=== PATIENT | female | born 1965 | race Asian ===

== ENCOUNTER 2025-06-14 13:07 | Outpatient (REF) | payer OTHER, SELFPAY ==
[2025-06-14 17:19] LABS: Hematocrit 49.0 % (37.0-47.0); Hemoglobin 15.6 g/dl (12.0-16.0); Mean Corpuscular HGB Conc 31.8 g/dl (31.0-35.0); Mean Corpuscular Hemoglobin 29.8 pg (27.0-33.0); Mean Corpuscular Volume 93.5 fL (80.0-98.0); NRBC Abs Auto 0.000 X10*3/uL (0.0-0.012); NRBC Pct Auto 0.0 /100WBC (0.0-0.2); Platelet Count 207 X10*3/uL (160-400); Red Blood Count 5.24 X10*6/uL (4.20-5.50); White Blood Count 8.3 X10*3/uL (4.8-10.8)
[2025-06-14 17:49] LABS: Microalbum/Creatinine Ratio Ur 13.9 ug/mg cr (<30)
[2025-06-14 17:59] LABS: Alanine Aminotransferase 58 U/L (0-31); Albumin Level 4.2 g/dL (3.5-5.0); Alkaline Phosphatase 101 U/L (39-117); Anion Gap 12 (12-20); Aspartate Amino Transferase 52 U/L (5-31); Blood Urea Nitrogen 11 mg/dL (9-16); Calcium 9.0 mg/dL (8.4-10.2); Carbon Dioxide 26 mmol/L (22-29); Chloride 108 mmol/L (96-108); Cholesterol 231 mg/dL (<200); Estimated Glomerular Filt Rate > 60; HDL Cholesterol 46 mg/dL (>40); Potassium 3.9 mmol/L (3.3-5.1); Sodium 142 mmol/L (135-145); Total Protein 7.2 g/dL (6.5-8.0); Triglycerides 110 mg/dL (<150)
[2025-06-14 18:22] LABS: Folate 3.6 ng/mL (> or = 4.0); Vitamin B12 835 pg/mL (200-900)
[2025-06-15 05:20] LABS: HBS Num1 0.30 mIU/mL (0-7.99); HBc Num1 13.27 S/CO (0.00-0.79); Hepatitis A Antibody IgM 0.34 Index (0-0.79); ~HepC Num1 0.17 S/CO (0.00-0.79); ~Hepatitis A Antibody IgM Nonreactive (Nonreactive); ~Hepatitis B Surface Antibody NONREACTIVE (Nonreactive); ~Hepatitis C Antibody Nonreactive (Nonreactive)
[2025-06-15 06:39] LABS: HBsAGNum2 Reactive; HBsAGNum3 Reactive
[2025-06-15 06:40] LABS: Hepatitis B Surface Antigen Retest CNFM (Negative)
[2025-06-15 06:52] LABS: HBc Num2 13.78 S/CO; HBc Num3 13.80 S/CO
[2025-06-17 02:42] LABS: Hepatitis B Core Antibody IgM NON-REACTIVE (NON-REACTIVE)
== END 2025-06-14 13:08 | disposition home or self-care (01) ==
LOC: HO.WFDLDS 13:07
PROVIDERS: PCP Nurse Practitioner Family; Visit Provider Nurse Practitioner Family
DX: Z00.00 Encounter for general adult medical examination without abnormal findings (principal); L85.3 Xerosis cutis; M79.672 Pain in left foot; M79.671 Pain in right foot; M65.332 Trigger finger, left middle finger; E66.9 Obesity, unspecified; R21 Rash and other nonspecific skin eruption; Z23 Encounter for immunization; Z78.0 Asymptomatic menopausal state; Z76.89 Persons encountering health services in other specified circumstances; Z13.820 Encounter for screening for osteoporosis; Z80.0 Family history of malignant neoplasm of digestive organs; Z68.30 Body mass index [BMI] 30.0-30.9, adult
CPT/HCPCS: 36415; 80053; 80061; 82043; 82306; 82570; 82607; 82746; 83036; 84443; 85027; 86704; 86705; 86706; 86709; 86803; 87340; 90471; 90472; 90656; 90715; 96127; 99202; 99386

== ENCOUNTER 2025-06-14 13:07 | Outpatient (AMB) | payer OTHER, SELFPAY ==
--- NOTE | 2025-06-14 13:10 | A.OFFPC_ITS ---
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 Intake Note: New patient visit [facility]ra [place]ta Roofer Helper Required: No Terra Cotta Roofer Helper Name: Terra Cotta Roofer Helper declined Accompanied by: Daughter Allergies No Known Allergies Allergy (Verified 06/14/25 13:11) Medication List - Last Reconciled 06/14/25 by HUNG Cruz-BC tacrolimus 0.03% 1 appl topical BID Tobacco use date assessed: 06/14/25 Dental Screening Dental Screen Date: 06/14/25 Did you have a dental visit in the last 12 months?: No Did you have a dental problem in the last 6 months where you did not have access to dental care?: No Was dental information given to patient?: Patient has dentist HPI HPI Comments History of Present Illness Details 60 y/o Panamanian speaking F with obesit y, Fhx liver ca (Mom) Surgery: none Fhx: Mom w/ liver cancer otherwise denies cancer or cardiac hx Social: moved from [place] to be closer to [facility] Health Maintenance: Colon cologaurd orderd today Mammo orderd today DEXA ordered today PAP will consider PULPER referral in future Tdap 06/14/25 Flu 06/14/25 Specialists: derm podiatry hand surgery History of Present Illness The patient is a 60 year old female presenting to [facility] care, for a CPE, and for evaluation of multiple musculoskeletal and dermatologic complaints. She has no known past medical or surgical history and denies any known drug allergies. She recently moved from [place] to [place]. No medical records available, here w/ dtr who helps w/ language barrier per her request. Xerosis of skin: - The patient reports dry skin on her le ft hand. - She has tried OTC creams from [facility] with out significant improvement. - She has not previously seen a dermatol ogist for this condition. Bilateral heel pain: - The patient complains of pain in both heels. - The pain is intermittent and has been present for about one week. - She has not tried any home treatments for the pain. Trigger finger, L middle: - The patient reports pain in one of her fingers which started a couple of months ago. - The pain is elicited upon touch, and s he has difficulty closing the finger. Past Medical History - Denies any past medical history. - Reports previously taking an unspecifi ed medicine for a neck issue. - Denies any known drug allergies. Past Surgical History - Denies any surgical history. Social History - The patient is retired. - She moved to [place] from [facility]. - Her [place] language is Panamanian. Health Maintenance - Laboratory studies for diabetes and ch olesterol screening will be ordered for the patient to complete today. - Influenza and Tdap vaccinations will b e administered during the visit. - The patient is agreeable to a home-bas ed test for colon cancer screening. Review of Systems - Constitutional: Denies fever, chills. - Integumentary: Reports dry skin on the left hand. - Musculoskeletal: Reports intermittent pain in both heels for one week and pain in a finger for a couple of months. History of a neck issue. - Allergic/Immunologic: Denies any medic ation allergies. Physical Exam General: Well developed, well nourished, in no acute distress. Appears stated age. Head: Normocephalic, atraumatic. Eyes: Pupils are equal, round and reactive to light and accommodation. Conjunctivae are clear. Scleras nonicteric bilat. Vision grossly normal. Ears: TMs clear AU, EACS WNL Nose: Patent, without discharge. Neck: No carotid bruit bilat. Supple, no adenopathy or thyromegaly. Breast: Edu on SBE Lungs: Clear to auscultation bilaterally. No rales, rhonchi or wheeze noted. Good air flow in all bear. Heart: Regular rate and rhythm. No murmurs, click, rubs or gallops are noted. Abdomen: Bowel sounds present in all quadrants. The abdomen is soft, nontender, with no masses or organomegaly noted. No hernias are noted. : Deferred. Reviewed recommendations for routine PULPER Pulses: Peripheral pulses are equal and palpable bilaterally. Trigger finger with LROM L middle, neurovasc intact ; pain over palp with heels bilat Extremities: No clubbing, cyanosis nor edema is noted. Pain noted in left heel and left hand, possibly trigger finger. Neurologic: Gait and station normal. Cranial Nerves 2-12 intact. Motor strength grossly symmetrical and intact. No sensory loss. Balance normal. Skin: No ulcers, or lesions noted elsewhere. Turgor is good. Skin color is good. Hair and nails are without abnormalities. Palmar surface L hand is a pink rash, skin is overall dry. Psych: Normal eye contact, affect and mood appropriate, and normal interactions. Patient is alert and appropriate to context. Results Pending Medical Decision Making The patient is a 60-year-old female presenting to [facility], for a CPE. She reports no significant past medical or surgical history. She has several chief complaints, including dry skin on the left hand, bilateral heel pain, and a trigger finger. The dry skin on her hand has not responded to [id number] creams. Given the lack of response, I will prescribe a topical cream and place a referral to Dermatology for further evaluation. The bilateral heel pain is consistent with plantar fasciitis, and a referral to a coding specialist is warranted. The finger complaint is clinically consistent with a trigger finger, which may require an injection; therefore, a referral to a hand specialist will be placed. As part of health maintenance for a new patient of her age, we will proceed with screening blood work for diabetes and cholesterol, which she can have done today. She is due for immunizations and will receive the influenza and Tdap vaccines today. We discussed cancer screenings, and the patient opted for a home-based test for colon cancer screening. Plan 1. Xerosis Of Skin - A prescription cream will be sent to [facility] pharmacy for the patient to try. - A referral will be placed for the [facility] to see a continuous pillowcase cutter. 2. Bilateral Heel Pain - A referral will be placed for the [facility] to be evaluated by a foot specialis t. 3. Trigger Finger - A referral will be placed for the [facility] to see a hand specialist, with the expectation that she may need an injection. Patient Instructions - A prescription for a cream has been se nt to your pharmacy, [facility] in [place]. Please use it as directed. - You will receive phone calls to [facility] appointments with a skin doctor, a foot doctor, and a hand doctor. Please make sure your phone number is up to date with the front office associate. - After the nurses give you two vaccinat ions (Flu and Tdap), please go to the lab here in the clinic to have your blood drawn. - Stop at the front office associate before you misty tuttle to get a summary of today's visit and to schedule your next appointment. Consent The patient provided verbal consent for screening blood work, including for diab etes and cholesterol. She also verbally consented to receive vaccinations during the visit. The patient was agreeable to referrals to dermatology, podiatry, and a hand specialist. Patient was informed and verbally consented to the use of an ambient scribe for clinic note documentation during this visit. An additional 30 minutes was spent addressing the problem(s) noted at todays visit. This includes time spent before the visit reviewing the chart, time spent during the visit, and time spent after the visit on documentation reviewing laboratory results, diagnostic imaging, medications, performing a medically necessary evaluation, counseling on diagnoses, care coordination, ordering appropriate tests, ordering appropriate medications, review of tests performed by other providers, reporting test results with the patient, communication with other healthcare providers. [facility] Surgical History (Updated 06/14/25 @ 13:24 by Mahsa Holley CMA) No pertinent past surgical history Social History (Updated 06/14/25 @ 13:24 by Mahsa Holley CMA) Housing: House Alcohol intake: never Patient Tobacco Use Status: Never used Tobacco e-Cigarette/Vaping Use: Never Used Second Hand Smoke Exposure: No Use of substances other than those prescribed or required for medical reasons: No service: No Current occupational status: retired Cognitive needs: No Hearing needs: No Vision needs: No Questionnaire PHQ-9 Over the last 2 weeks, how often have you been bothered by any of the following problems? 1. Little interest or pleasure in doing things: not at all 2. Feeling down, depressed, or hopeless: not at all 3. Trouble falling or staying asleep, or sleeping too much: not at all 4. Feeling tired or having little energy: not at all 5. Poor appetite or overeating: not at all 6. Feeling bad about yourself - or that you are a failure or have let yourself or your family down: not at all 7. Trouble concentrating on things, such as reading the newspaper or watching television: not at all 8. Moving or speaking so slowly that other people could have noticed. Or the opposite - being so fidgety or restless that you have been moving around a lot more than usual: not at all 9. Thoughts that you would be better off or of hurting yourself in some way: not at all Total score: 0 Depression Screening Interpretation: Negative Depression Screening Done: Yes 77381 - PHQ-9 Billing: Yes Source: Developed by Drs. Mir Liang, Carline Christopher, Kapil Haskins and colleagues, with an educational dion from [employer]. Thrive Questionnaire Date Thrive assessed: 06/14/25 I am a: Patient What is your living situation today?: I have a steady place to live Within the past 12 months, did the food you bought not last and you didn't have the money to get more?: Never true Within the past 12 months, did you worry whether your food would run out before you got money to buy more?: Never true Do you have trouble paying for medicines?: No Do you have trouble getting transportation to medical appointments?: No Do you have trouble paying your heating and electricity bill?: No Do you have trouble taking care of your child, family member or friend?: No Do you have trouble with day-to-day activities such as bathing, preparing meals, shopping, managing finances, etc.?: No Are you currently unemployed and looking for a job?: No Are you interested in more education?: No Please select the resources that you would like help with: None Currently or been in a relationship where the following occur: I choose not to answer THRIVE Score: 0 AUDIT C Alcohol Use Questionnaire (AUDIT-C) 1. How often do you have a drink containing alcohol?: Never 3. How often do you have six or more drinks on one occasion?: Never Total Score: 0 Score Reviewed/Action Taken: Yes JU-7 AMB Questionnaire JU-7 Date JU - 7 assessed: 06/14/25 Feeling nervous, anxious, or on edge: 0 = Not at all Not being able to stop or control worryin = Not at all Worrying too much about different things: 0 = Not at all Trouble relaxin = Not at all Being so restless that it is hard to sit still: 0 = Not at all Becoming easily annoyed or irritable: 0 = Not at all Feeling afraid as if something awful might happen: 0 = Not at all Total UJ-7 score (0-4 normal; 5-9 mild; 10-14 moderate; 15-21 severe): 0 Source: Developed by Drs. Mir Liang, Carline Christopher, Kapil Haskins and colleagues, with an educational dion from [employer]. JU-7 Assessment Billing JU-7 Assessment Tool: JU-7 Assessment 66973 Physical exam (Primary Care) Vital Signs: Last Vital Signs Temp 98.4 F 06/14/25 13:17 Pulse 81 06/14/25 13:17 Resp 12 06/14/25 13:17 BP 132/74 06/14/25 13:17 Pulse Ox 98 06/14/25 13:17 Oxygen Delivery Method Room Air 06/14/25 13:17 BMI result Body Mass Index 30.1 BMI Assessment/Plan discussion: High BMI High, discussed plan: lifestyle Tobacco/Smoking Status: Tobacco use Status Tobacco use date assessed 06/14/25 06/14/25 13:19 Patient Tobacco Use Status Never used Tobacco 06/14/25 13:24 e-Cigarette/Vaping Use Never Used 06/14/25 13:24 PHQ-9: PHQ-9 Score PHQ-9: Total score 0 06/14/25 13:25 Depression Screening Interpretation: Negative Thrive Assessment: Date of Thrive Assessment Date Thrive assessed 06/14/25 06/14/25 13:25 Currently or been in a relationship where the following occur: I choose not to answer Coding Level of Care Code New Pt Level 3 (52326) New Pt Prev Care 40-64y(26279) Diagnoses Adult general medical exam Z00.00 Laboratory exam ordered as part of routine general medical examination Z00.00 Obesity (BMI 30-39.9) E66.9 Skin rash R21 Menopause Z78.0 Family history of liver cancer Z80.0 Trigger middle finger of left hand M65.332 Trigger finger location: middle finger Laterality: left Need for Tdap vaccination Z23 Influenza vaccination administered at current visit Z23 Encounter to establish care with new provider Z76.89 Additional Codes JU-7 Assessment Billing - JU-7 Assessment Tool: JU-7 Assessment 88952 ([id number]) PHQ-9 - 21125 - PHQ-9 Billing: Yes ([id number]) Assessment & Plan Assessment & Plan (1) Adult general medical exam: Onset Date: ~06/14/25 Code(s): Z00.00 - Encounter for general adult medical examination without abnormal findings Category: Medical (2) Laboratory exam ordered as part of routine general medical examination: Code(s): Z00.00 - Encounter for general adult medical examination without abnormal findings Category: Medical (3) Obesity (BMI 30-39.9): Code(s): E66.9 - Obesity, unspecified Category: Medical (4) Skin rash: Comment: L palmar surface refer to [facility] Code(s): R21 - Rash and other nonspecific skin eruption Category: Medical (5) Menopause: Comment: dEXA ordered Code(s): Z78.0 - Asymptomatic menopausal state Category: Medical (6) Family history of liver cancer: Comment: Mom Code(s): Z80.0 - Family history of malignant neoplasm of digestive organs Category: Medical (7) Trigger finger: Comment: refer to [facility] Code(s): M65.30 - Trigger finger, unspecified finger Category: Medical Qualifiers: Trigger finger location: middle finger Laterality: left Qualified Code(s): M65.332 - Trigger finger, left middle finger (8) Need for Tdap vaccination: Onset Date: ~06/14/25 Code(s): Z23 - Encounter for immunization Category: Medical (9) Influenza vaccination administered at current visit: Onset Date: ~06/14/25 Code(s): Z23 - Encounter for immunization Category: Medical (10) Encounter to establish care with new provider: Code(s): Z76.89 - Persons encountering health services in other specified circumstances Plan . Orders: Orders MM tomosynthesis screening BI Today Z12.31 - Encounter for screening mammogram for malignant neoplasm of breast Hepatitis A,B,C Profile Today Z80.0 - Family history of malignant neoplasm of digestive organs Complete Blood Count no Diff Today Z00.00 - Encounter for general adult medical examination without abnormal findings Comprehensive Met. Panel Today Z00.00 - Encounter for general adult medical examination without abnormal findings Hemoglobin A1c Today Z00.00 - Encounter for general adult medical examination without abnormal findings Lipid Panel Today Z00.00 - Encounter for general adult medical examination without abnormal findings Microalbumin, Random (w Creat) Today Z00.00 - Encounter for general adult medical examination without abnormal findings TSH reflex Free T4 Today Z00.00 - Encounter for general adult medical examin ation without abnormal findings Vitamin B12 and Folate Today Z00.00 - Encounter for general adult medical examination without abnormal findings XR DEXA axial skeleton Today Z13.820 - Encounter for screening for osteoporosis, Z78.0 - Asymptomatic menopausal state Vitamin D 25-OH Total Today Z00.00 - Encounter for general adult medical examination without abnormal findings Referrals Podiatry Referral M79.671 - Pain in right foot, M79.672 - Pain in left foot Dermatology Referral R21 - Rash and other nonspecific skin eruption Cologuard Test Z12.11 - Encounter for screening for malignant neoplasm of colon Hand Surgery Referral M65.30 - Trigger finger, unspecified finger Medications: New tacrolimus 0.03% 1 appl topical BID 30 grams 2RF Patient Instructions: Patient Instructions - A prescription for a cream has been sent to your pharmacy, [facility] in [place]. Please use it as directed. - You will receive phone calls to schedule appointments with a skin doctor, a foot doctor, and a hand doctor. Please make sure your phone number is up to date with the front office associate. - After the nurses give you two vaccinations (Flu and Tdap), please go to the lab here in the clinic to have your blood drawn. - Stop at the front office associate before you leave to get a summary of today's visit and to schedule your next appointment. Walk-In Care (Urgent Care): We Make it Easy Walk-in for urgent medical issues such as: ? Seasonal Allergies ? Insect Bites ? Cough ? Diarrhea ? Acute Asthma Attacks ? Back, Knee or Joint Pain ? Ear Infection ? Fever without a Rash ? Headaches ? Nausea ? [place] [facility], Rash or Skin Irritation ? Sore Throat ? Sports Physicals ? Vomiting Most insurances are accepted. Patients do not need to be part of the [facility] to seek care at the walk-in clinic. Locations [address], [place] Open Tuesday through Tuesday 8am-5pm *Hours may vary due to staffing availability. To confirm Walk-In Care hours please call. [address], [place] [address] ? [phone] [facility] Walk-In Care in [place] provides services to ages 18 and over. Open Tuesday-Tuesday: 7 a.m. to 5 p.m. and Tuesday: 9 a.m. to 3 p.m.* *Hours may vary due to staffing availability. To confirm Walk-In Care hours in [place], please call [phone]. [address] [place] [address] ? [phone] [facility] Walk-In Care in [place] provides services to ages 12 and over. Open Tuesday-Tuesday: 8 a.m. to 5 p.m. Hours may vary due to staffing availability. To confirm Walk-In Care hours in [place], please call [phone]. LABORATORY SERVICES: [facility] ? Primary Location [address] [place] [address] Tuesday through Tuesday 6:00 AM ? 5:00 PM Tuesday 7:00 AM ? 11:00 AM* [phone] The [facility] is centrally located near the front entrance of the [facility] for easy outpatient access. Convenient parking is provided for outpatients. *Hours may vary due to staffing availability. To confirm Laboratory hours for any location, please call [phone]. Offsite Location For your convenience, we offer offsite laboratory draw stations at the following locations: [address] [place] [address] ? [address], [address] [place] [address] Tuesday through Tuesday 7:30 AM ? 1:00 PM* [phone] *Hours may vary due to staffing availability. To confirm Laboratory hours for any location, please call [phone]. [place] ? [address] Tuesday through Tuesday 6:00 AM ? 3:30 PM* Tuesday 6:30 AM ? 3 PM* [phone] *Hours may vary due to staffing availability. To confirm Laboratory hours for any location, please call [phone] [place] [address] Tuesday through Tuesday 7:30 AM ? 4:00 PM* [phone] *Hours may vary due to staffing availability. To confirm Laboratory hours for any location, please call [phone] [place] [address] Tuesday through 9:00 AM ? 4:00 PM* *Hours may vary due to staffing availability. To confirm Laboratory hours for any location, please call [phone]. Appointments are not necessary. Walk-ins are welcome. Like all the departments throughout the [facility], our Lab undergoes frequent reviews to ensure the quality and accuracy of test results, and our staff takes special pride in its status as a nationally accredited facility. Patient Portal: [facility] ONE PATIENT. ONE RECORD. BETTER CARE. [facility] has a fully integrated, cutting- edge mobile electronic health information system that has revolutionized the way we care for our patients and manage our organization. This system improves communication and coordination enabling us to provide safe, higher-quality care, and an overall positive experience for staff and patients. Our first priority, as always, is to deliver the highest quality care possible. The system is running in the background supporting that priority. This portal is for all [facility] and [facility] services and practices. If you are experiencing any technical difficulties with enrolling or logging into the Patient Portal please complete the [facility] Patient Portal Technical Support Form. [facility] now offers a new secure on-line interactive tool for patients to review their health information ? ?Patient Portal. This interactive web portal will enable patients and their families to take an active role in their care by providing easy, secure access to their health information via the internet. The Patient Portal provides patients with instant access to their health information, including laboratory results, medications, allergies, demographic information, visit history, and more. In addition to managing their own care, parents and health care proxies with authorized consent will appreciate the ability to access the records of those individuals for whom they provide care. Please note: if you wish to gain access (Proxy) to another patient?s portal, you will be required to come to the Medical Records Department in person at [facility]. Both the patient giving proxy access and the proxy will need to provide photo identification and complete the appropriate authorization. The Patient Portal also allows track their appointments online. The [facility] Patient Portal also saves patients time by allowing them to submit updates to their demographic and contact information prior to their visits. Portal email notifications will also alert patients to any new activity on their portal, such as test results and new appointments. In order to initially enroll in the [facility] Patient Portal, you will need to enter some required information including the following: * your [facility] Medical Record number * your personal home email address * name * date of Please note: In order to enroll in the [facility] Patient Portal, we need to have your email address on file in your electronic medical record. ?The email address needs to be specific for one person (yourself) in order for your Portal enrollment to be successful. ?You can update your email address in person with our Registration staff when you are registering for a hospital visit. ?Otherwise, you will need to come to the Health Information Management (Medical Records) Department at [facility]. ?We are open from Tuesday ? Tuesday from 7:30 a.m. ? 4:30 p.m. ?You will be required to present a photo id. Once you have successfully enrolled in the Patient Portal, you will receive a one-time user id and password for the Portal, sent to your email address. ?This will allow you to log into the Patient Portal within 99 hrs and reset your own logon id and password, and define personal security questions. ?Once your permanent login and password have been set, you can log into the [facility] Patient Portal at any time via the blue button above or from the Portal Logon button on any page of the [facility] website. [facility] [facility] encourage all of our patients to enroll in Patient Portal as it presents a valuable opportunity for patients and their families to actively participate in their care and stay healthy Welcome to [facility]. ?We look forward to working with you. Health screenings for women You should visit your health care provider from time to time, even if you are healthy. The purpose of these visits is to: Screen for medical issues Assess your risk for future medical problems Encourage a healthy lifestyle Update vaccinations and other preventive care services Help you get to know your provider in case of an illness Information Even if you feel fine, you should still see your provider for regular checkups. These visits can help you avoid problems in the future. For example, the only way to find out if you have high blood pressure is to have it checked regularly. High blood sugar and high cholesterol levels also may not have any symptoms in the early stages. A simple blood test can check for these conditions. There are specific times when you should see your provider or receive specific health screenings. The [place] Preventive Services Task Force publishes a list of recommended screenings. Below are screening guidelines for women ages 18 to 39. BLOOD PRESSURE SCREENING Your blood pressure should be checked at least once every 3 to 5 years if: Your blood pressure is in the normal range (top number less than 120 mm Hg and bottom number less than 80 mm Hg) You don't have risk factors for high blood pressure Ask your provider if you need your blood pressure checked more often if: The top number is 120 to 129 mm Hg or the bottom number is 70 to 79 mm Hg You have diabetes, heart disease, kidney problems, are overweight, or have certain other health conditions You have a first-degree relative with high blood pressure You are Black You had high blood pressure during a If the top number is 130 mm Hg or greater or the bottom number is 80 mm Hg or greater, this is considered stage 1 hypertension. Schedule an appointment with your provider to learn how you can reduce your blood pressure. Watch for blood pressure screenings in your area. Ask your provider if you can stop in to have your blood pressure checked. BREAST CANCER SCREENING Experts do not agree about the benefits of breast self-exams in finding breast cancer or saving lives. Talk to your provider about what is best for you. A screening mammogram is not recommended for most women under age 40. Your provider may discuss and recommend mammograms, MRI scans, or ultrasounds if you have an increased risk for breast cancer, such as: A mother or sister who had breast cancer at a young age (most often starting screening earlier than the age the close relative was diagnosed) You carry a high-risk genetic marker CERVICAL CANCER SCREENING Cervical cancer screening should start at age 21 years unless your provider advises otherwise. After the first test: Women ages 21 through 29 should have a Pap test every 3 years. Exoprts do not agree on whether HPV testing is recommended for this age group. Women ages 30 through 65 should be screened with either a Pap test every 3 years or the HPV test every 5 years or both tests every 5 years (called cotesting ). Women who have been treated for precancer (cervical dysplasia) should continue to have Pap tests for 20 years after treatment or until age 65, whichever is longer. If you have had your uterus and cervix removed (total hysterectomy), and you have not been diagnosed with cervical cancer or precancer (high grade cervical neoplasia), you do not need cervical cancer screening. CHOLESTEROL SCREENING Cholesterol screening should begin at: Age 45 for women with no known risk factors for coronary heart disease Age 20 for women with known risk factors for coronary heart disease Repeat cholesterol screening should take place: Every 5 years for women with normal cholesterol levels More often if changes occur in lifestyle (including weight gain and diet) More often if you have diabetes, heart disease, kidney problems, or certain other conditions DIABETES SCREENING You should be screened for diabetes starting at age 35 and then repeated every 3 years if you have no risk factors for diabetes. Screening may need to start earlier and be repeated more often if you have other risk factors for diabetes, such as: You have a first degree relative with diabetes. You are overweight or have obesity. You have high blood pressure, prediabetes, or a history of heart disease. Screening for diabetes should be done if you are planning to become and you are overweight and have other risk factors such as high blood pressure. DENTAL EXAM Go to the dentist once or twice every year for an exam and cleaning. Your dentist will evaluate if you need more frequent visits. EYE EXAM Have an eye exam every 5 to 10 years before age 40. If you have vision problems, have an eye exam every 2 years or more often if recommended by your provider. You should have an eye exam that includes an examination of your retina (back of your eye) at least every year if you have diabetes. IMMUNIZATIONS Commonly needed vaccines include: Flu shot: get one every year. COVID-19 vaccine: ask your provider what is best for you. Tetanus-diphtheria and acellular pertussis (Tdap) vaccine: have one at or after age 19 as one of your tetanus-diphtheria vaccines if you did not receive it as an adolescent. Tetanus-diphtheria: have a booster (or Tdap) every 10 years. Varicella vaccine: receive 2 doses if you never had chickenpox or the varicella vaccine. Hepatitis B vaccine: receive 2, 3, or 4 doses, depending on your exact circumstances. Measles, mumps, and rubella (MMR) vaccine: receive 1 to 2 doses if you are not already immune to MMR. Your provider can tell you if you are immune. Ask your provider about the human papillomavirus (HPV) vaccine if: You have not received the HPV vaccine in the past You have not completed the full vaccine series (you should catch up on this shot) Ask your provider if you should receive other immunizations if you have certain health problems that increase your risk for some diseases such as pneumonia. INFECTIOUS DISEASE SCREENING Women who are sexually active should be screened for chlamydia and gonorrhea up until age 25. Women 25 years and older should be screened for chlamydia and gonorrhea if at high risk. Screening for hepatitis C: All adults ages 18 to 79 should get a one-time test for hepatitis C. people should be screened at every . Screening for human immunodeficiency virus (HIV): All people ages 15 to 65 should get a one-time test for HIV. Depending on your lifestyle and medical history, you may also need to be screened for infections such as syphilis and HIV, as well as other infections. PHYSICAL EXAM All adults should visit their provider from time to time, even if they are healthy. The purpose of these visits is to: Screen for disease Assess your risk of future medical problems Encourage a healthy lifestyle Update your vaccinations and other preventive care services Maintain a relationship with a provider in case of an illness Your height, weight, and BMI should be checked at every exam. During your exam, your provider may ask you about: Depression and anxiety Diet and exercise Alcohol and tobacco use Safety issues, such as using seat belts, smoke detectors, and intimate partner violence Your medicines and risk for interactions SKIN SELF-EXAM Your provider may check your skin for signs of skin cancer, especially if you're at high risk, such as if you: Have had skin cancer before Have close relatives with skin cancer Have a weakened immune system OTHER SCREENING Talk with your provider about colon cancer screening if you have a strong family history of colon cancer or polyps, or if you have had inflammatory bowel disease or polyps yourself. Routine bone density screening of women under 40 is not recommended.
[2025-06-14 13:17] VITALS: BP 132/74; PULSE 81; RESP 12; TEMP 36.9; O2SAT 98; BMI 30.1
== END 2025-06-14 14:15 | disposition home or self-care (01) ==
LOC: HO.HMCFM 13:08
PROVIDERS: PCP Nurse Practitioner Family; Visit Provider Nurse Practitioner Family
DX: Z00.00 Encounter for general adult medical examination without abnormal findings (principal); E66.9 Obesity, unspecified; Z68.30 Body mass index [BMI] 30.0-30.9, adult; L85.3 Xerosis cutis; M65.332 Trigger finger, left middle finger; Z23 Encounter for immunization; Z80.0 Family history of malignant neoplasm of digestive organs